=== PATIENT | female | born 1960 | race Caucasian/White ===

== ENCOUNTER 2025-09-28 16:27 | Emergency (ER) | payer OTHER ==
[~2025-09-28] VITALS: Ht 162.5 cm; Wt 90.3 kg
[~2025-09-28 16:27] MED LIST: ASPI-COR81 M1 PO; MASON NATURAL2000 IU PO; MOTRIN600 MG PO; MULTIVITAMIN FO1 CAP PO; ULTRAM50 MG PO
[2025-09-28 17:11] LABS: BASO # 0.1 10*3/uL (0.0-0.1); BASO % 0.7 % (0.0-1.0); EOS # 0.1 10*3/uL (0.0-0.4); EOS % 1.4 % (1.0-4.0); MEAN CELL VOLUME 88.3 fl (81.0-99.0); MEAN CORPUSCULAR HGB 28.9 pg (27.0-31.0); MEAN PLATELET VOLUME 9.6 fl (9.6-12.3); MONO # 0.6 10*3/uL (0.1-1.0); MONO % 9.0 % (3.0-9.0); NEUT # 4.1 10*3/uL (2.3-7.9); NEUT % 57.6 % (47.0-73.0); NUCLEATED RED BLOOD CELL 0.0 % (0.0-0.0); NUCLEATED RED BLOOD CELL 0.0 10*3/uL (0.0-0.0); PLATELET COUNT AUTOMATED 228 10*3/uL (130-400); RED CELL DISTRI WIDTH 12.3 % (0-14.5)
[2025-09-28 17:30] LABS: BUN 23 mg/dl (9-23)
== END 2025-09-28 19:44 | disposition home or self-care (01) ==
LOC: ED 16:27
PROVIDERS: Student in an Organized Health Care Education/Training Program
DX: R07.89 Other chest pain (principal); R11.0 Nausea